=== PATIENT | male | born 1970 | race Caucasian/White ===

== ENCOUNTER 2018-11-03 23:48 | Emergency (ER) | payer BC ==
[~2018-11-03] VITALS: Ht 162.6 cm; Wt 93.2 kg
[~2018-11-03 23:48] MED LIST: NORVASC 5MG5 MG/TAB PO; PRINIVIL20 MG PO
[2018-11-03 23:59] VITALS: BP 178/93; PULSE 75; TEMP 98.1
[2018-11-04] MEDS ORDERED: FLEXERIL 1010 MG/TAB PO (01:02)
[2018-11-04] MEDS ORDERED: PERCOCET 325 MG1 TA2 PO (01:02)
== END 2018-11-04 02:00 | disposition home or self-care (01) ==
LOC: COL.ER 23:48
DX: M54.5 Low back pain (principal); I10 Essential (primary) hypertension
CPT/HCPCS: J1170; J2060

== ENCOUNTER 2019-08-19 20:32 | Emergency (ER) | payer BC ==
[~2019-08-19] VITALS: Ht 162.6 cm; Wt 95.5 kg
[~2019-08-19 20:32] MED LIST changes: +FLEXERIL 1010 MG/TAB PO; +PERCOCET 325 MG1 TA2 PO
[2019-08-19 20:46] VITALS: TEMP 97.5
[2019-08-19 21:14] LABS: BASO % 0.1 % (0.0-2.0); EOS % 0.2 % (0-4.0); GRAN # 11.7 (1.4-6.5); GRAN % 86.7 % (42.2-75.2); HEMATOCRIT 46.5 % (42.0-52.0); HEMOGLOBIN 15.2 g/dl (13.5-18.0); LYMPH # 0.9 (1.2-3.4); LYMPH % 6.8 % (20.0-51.0); MEAN CELL VOLUME 89 fl (80.0-100.0); MEAN CORPUSCULAR HEMOGLOBIN 29 pg (27.0-31.0); MEAN CORPUSCULAR HGB CONC 33 g/dl (33.0-37.0); MEAN PLATELET VOLUME 10.4 fl (7.4-10.4); MONO # 0.8 (0.1-0.6); MONO % 5.8 % (1.7-9.3); PLATELET COUNT 346 K/mm3 (130-400); RED BLOOD COUNT 5.24 M/mm3 (4.20-5.60); REDCELL DISTRIBUTION WIDTH-CV 13.5 % (11.5-14.5)
[2019-08-19 21:25] LABS: ALBUMIN 4.2 gm/dL (3.5-5.0); BILIRUBIN,TOTAL 0.4 mg/dL (0.0-1.0); C-REACTIVE PROTEIN 3.5 mg/dL (0.0-0.9); CALCIUM 9.1 mg/dL (8.4-10.2); CREATININE, serum 1.02 (0.66-1.25); POTASSIUM 3.9 mmol/L (3.4-5.0)
[2019-08-19] MEDS ORDERED: ZOFRAN ODT4 MG PO (22:28)
[2019-08-19 23:00] VITALS: BP 116/71; PULSE 75
== END 2019-08-19 23:00 | disposition home or self-care (01) ==
LOC: COL.ER 20:32
PROVIDERS: Family Medicine
DX: K52.9 Noninfective gastroenteritis and colitis, unspecified (principal); E86.9 Volume depletion, unspecified; R55 Syncope and collapse; E86.0 Dehydration; I10 Essential (primary) hypertension
CPT/HCPCS: J2405; J7030